=== PATIENT | female | born 1970 | race Caucasian/White ===

== ENCOUNTER → 2020-08-16 | Outpatient (CLI) | payer OTHER ==
[~2020-08-16] MED LIST: ACYC800 PO; BP MED; Bactrim Ds Tab1 EACH PO; CEPH500 PO; HEARTBURN MED
== END | disposition home or self-care (01) ==
LOC: PLD 07:24 → LAB SHORT 07:24
DX: D49.2 Neoplasm of unspecified behavior of bone, soft tissue, and skin (principal)
CPT/HCPCS: 88305

== ENCOUNTER → 2020-11-23 | Outpatient (CLI) | payer OTHER ==
[2020-11-27 11:59] LABS: Stool Occult Bld Immuno 1 Negative (NEGATIVE)
== END | disposition home or self-care (01) ==
LOC: LAB EV 11:00 → LAB SHORT 11:00
PROVIDERS: Nurse Practitioner Family
DX: K92.1 Melena (principal)
CPT/HCPCS: 82274

== ENCOUNTER 2020-12-02 06:27 | Emergency (ER) | payer OTHER ==
[~2020-12-02] VITALS: Ht 157.5 cm; Wt 68.0 kg
[~2020-12-02 06:27] MED LIST changes: -ACYC800 PO
[2020-12-02] MEDS ORDERED: ACYC800 PO (07:29)
== END 2020-12-02 07:58 | disposition home or self-care (01) ==
LOC: ER 06:27
DX: B02.9 Zoster without complications (principal); F17.210 Nicotine dependence, cigarettes, uncomplicated
CPT/HCPCS: 99282; A9270

== ENCOUNTER 2021-11-25 06:54 | Emergency (ER) | payer OTHER ==
[~2021-11-25] VITALS: Ht 157.5 cm; Wt 68.0 kg
[~2021-11-25 06:54] MED LIST changes: +ACYC800 PO
[2021-11-25 07:45] LABS: Hematocrit 45.1 % (33.0-51.0); Hemoglobin 14.9 g/dL (11.5-16.0); Mean Corpuscular HGB 30.7 pg (26.0-34.0); Mean Corpuscular Volume 93 fL (80-100); Mean Platelet Volume 10.8 fL (9.1-12.4); Platelet Count 206 K/mm3 (150-400); RDW Coefficient Variation 14.1 % (11.7-14.2); RDW Standard Deviation 47.8 fL (35.1-46.3); Red Blood Cell Count 4.85 M/mm3 (3.80-5.20); White Blood Cell Count 10.54 K/mm3 (4.00-11.30)
[2021-11-25 07:57] LABS: Albumin, Blood 3.8 g/dL (3.4-5.0); Bilirubin, Total 0.9 mg/dL (0.1-1.0); Bun/Creatinine Ratio 28.7 (12.0-20.0); Calcium, Blood 9.2 mg/dL (8.5-10.1); Creatinine, Blood 0.63 mg/dL (0.40-1.00); Potassium, Blood 3.6 mmol/L (3.5-5.5); Total Protein, Blood 7.8 g/dL (6.4-8.2)
[2021-11-25] MEDS ORDERED: LISI20 PO (08:13)
[2021-11-25] MEDS ORDERED: OMEP20ER PO (08:13)
[2021-11-25 08:25] LABS: BASOPHILS ABSOLUTE MAN 0.31 K/mm3 (0.00-0.23); BASOPHILS PERCENT MAN 3 % (0-2); EOSINOPHILS ABSOLUTE MAN 0.31 K/mm3 (0.00-0.68); EOSINOPHILS PERCENT MAN 3 % (0-6); LYMPHOCYTES PERCENT MAN 75 % (21-46); MONOCYTES ABSOLUTE MAN 0.31 K/mm3 (0.16-1.47); MONOCYTES PERCENT MAN 3 % (4-13); NEUTROPHILS ABSOLUTE MAN 1.68 K/mm3 (1.96-9.15); SEG NEUTROPHILS PERCENT MAN 16 % (41-73); TOTAL CELLS COUNTED 100
[2021-11-25 09:37] LABS: Influenza A, PCR NEGATIVE (NEGATIVE); Influenza B, PCR NEGATIVE (NEGATIVE); Resp Syncytial Virus, PCR NEGATIVE (NEGATIVE); SARS-Cov-2 (COVID-19) PCR, MMC NEGATIVE (NEGATIVE)
[2021-11-25] MEDS ORDERED: ALMACONE SUSPE355 ML PO (11:24)
[2021-11-25] MEDS ORDERED: ONDA4ODT MM (11:24)
== END 2021-11-25 11:37 | disposition home or self-care (01) ==
LOC: ER 06:54
PROVIDERS: Student in an Organized Health Care Education/Training Program
DX: R07.89 Other chest pain (principal); K21.9 Gastro-esophageal reflux disease without esophagitis; F41.9 Anxiety disorder, unspecified; F19.10 Other psychoactive substance abuse, uncomplicated; I10 Essential (primary) hypertension; R00.0 Tachycardia, unspecified; Z79.899 Other long term (current) drug therapy; F17.210 Nicotine dependence, cigarettes, uncomplicated; Z20.822 Contact with and (suspected) exposure to COVID-19
CPT/HCPCS: 0241U; 36415; 71045; 80053; 83735; 84484; 85025; 93005; 93010; 96374; 96375; 99284-25; A9270; G0480; J1885; J2060

== ENCOUNTER → 2022-05-22 | Outpatient (CLI) | payer OTHER ==
[~2022-05-22] MED LIST changes: +ALMACONE SUSPE355 ML PO; +LISI20 PO; +OMEP20ER PO; +ONDA4ODT MM
[2022-05-29 08:09] LABS: FENTANYL Positive (.); FENTANYL CONFIRM >50000 pg/mL (Cutoff=500); FENTANYL/NORFENTANYL Positive (.); NORFENTANYL Positive (.); NORFENTANYL CONFIRM >90000 pg/mL (Cutoff=500)
== END ==
LOC: LAB SHORT 12:30 → LAB 12:30
PROVIDERS: Family Medicine
DX: F15.10 Other stimulant abuse, uncomplicated (principal); F11.20 Opioid dependence, uncomplicated
CPT/HCPCS: G0480

== ENCOUNTER 2023-07-08 18:35 | Emergency (ER) | payer OTHER ==
[~2023-07-08] VITALS: Ht 154.9 cm; Wt 61.2 kg
[~2023-07-08 18:35] MED LIST changes: +SULTRIDS PO
[2023-07-08 21:03] VITALS: BP 212/131
[2023-07-08 22:34] LABS: Source, Urine Clean Catch
[2023-07-08 22:36] LABS: Appearance, Urine Clear (Clear); Bilirubin, Urine Neg (Neg); Blood, Urine 1+ (Neg); Color, Urine Yellow (P-Yellow); Glucose Qualitative, Urine Neg (Neg); Ketones, Urine Neg (Neg); Leukocyte Esterase, Urine Neg (Neg); Nitrite, Urine Neg (Neg); Protein, Urine Neg (Neg); Specific Gravity, Urine 1.015 (1.003-1.022); Urobilinogen, Urine NORM (Normal)
[2023-07-08 22:57] LABS: Bacteria Few /hpf; Red Blood Cells, Urine 0-2 /hpf (0-2); Squamous Epithelial Cells Few /hpf (Few); White Blood Cells, Urine 0-2 /hpf (0-5)
== END 2023-07-08 22:25 | disposition left against medical advice (07) ==
LOC: ER 18:35
PROVIDERS: Student in an Organized Health Care Education/Training Program
DX: R10.30 Lower abdominal pain, unspecified (principal); Z53.29 Procedure and treatment not carried out because of patient's decision for other reasons; Z87.442 Personal history of urinary calculi
CPT/HCPCS: 81001

== ENCOUNTER 2023-08-10 11:32 | Day surgery (SDC) | payer OTHER ==
[~2023-08-10] VITALS: Ht 154.9 cm; Wt 62.6 kg
[2023-08-10] VITALS (8 sets, daily range): BP systolic 113–159; BP diastolic 82–108
[~2023-08-10 11:32] MED LIST changes: +BUPRENORPHINE-1 EACH SL; +FISH OIL 1,0001 EA10 PO; +Milk Thistle175 M1 PO
[2023-08-10] MEDS ORDERED: Lidocaine 2% Jelly Uro-Jet ONE (11:41)
[2023-08-10] MEDS ORDERED: Phenylephrine 0.5% Nasal Spray/Drops 15 ML ONE (11:42)
[2023-08-10] MEDS ORDERED: Lidocaine 2% 5 ML SDV ONE (11:42)
[2023-08-10] MEDS ORDERED: EpiNEPhrine 1 MG/1 ML 1ML Vial ONE (11:57)
--- NOTE | 2023-08-10 12:27 | NUR ---
Ambulatory in Day Surgery History, Chart, Medications and Allergies reviewed before start of procedure. Pre-Op teaching done. Pt verbalizes understanding. Patient States Post-Procedure ride home has been arranged.
[2023-08-10] MEDS ORDERED: Midazolam HCL 1 MG/ML 5MLVIAL ONE ×3 (12:29→13:47)
[2023-08-10] MEDS ORDERED: propofoL 20 ML IV ONE (12:29)
[2023-08-10] MEDS ORDERED: Lactated Ringer's 1,000 ML IV SCH (12:30)
[2023-08-10] MEDS ORDERED: FentaNYL Citrate 50 MCG/ML 2 ML Injection ONE ×2 (12:30→13:40)
[2023-08-10] MEDS ORDERED: propofoL 0 ML IV ONE (12:52)
--- NOTE | 2023-08-10 13:59 | NUR ---
08/10/23 1359 Andrei Chavez History, Chart, Medications and Allergies reviewed before start of procedure. MONITOR INTACT WITH CONTINUOUS PULSE OXIMETRY, CONTINUOUS END TITAL CO2, AND INTERMITTENT BLOOD PRESSURE. 3-LEAD EKG REVIEWED WITH PHYSICIAN PRIOR TO START OF PROCEDURE. O2 VIA POM MASK INTACT THROUGHOUT SEDATION/PROCEDURE. Bite Block Placed. LIDO TO BACK OF THROAT PRIOR TO PROCEDURE. GLASSES REMOVED FROM PATIENT AND PLACED IN DAY SURGERY BAY.
--- NOTE | 2023-08-10 16:31 | NUR ---
Discharge instructions reviewed with patient. Patient verbalizes understanding. Copy given to patient to take home. Patient States Post-Procedure ride home has been arranged. Discharged via wheelchair to private car for ride home.
== END 2023-08-10 16:25 | disposition home or self-care (01) ==
LOC: ORSCMMR 11:32 → ORD 13:00 → ORSCMMR 16:25
PROVIDERS: Student in an Organized Health Care Education/Training Program
PROC: 0BDB8ZX Extraction of Left Lower Lobe Bronchus, Via Natural or Artificial Opening Endoscopic, Diagnostic (ICD-10-PCS; principal; 2023-08-10 13:00)
PROC: 0BD58ZX Extraction of Right Middle Lobe Bronchus, Via Natural or Artificial Opening Endoscopic, Diagnostic (ICD-10-PCS; principal; 2023-08-10 13:00)
PROC: 0BD88ZX Extraction of Left Upper Lobe Bronchus, Via Natural or Artificial Opening Endoscopic, Diagnostic (ICD-10-PCS; principal; 2023-08-10 13:00)
PROC: 0BD78ZX Extraction of Left Main Bronchus, Via Natural or Artificial Opening Endoscopic, Diagnostic (ICD-10-PCS; principal; 2023-08-10 13:00)
PROC: 0BD38ZX Extraction of Right Main Bronchus, Via Natural or Artificial Opening Endoscopic, Diagnostic (ICD-10-PCS; principal; 2023-08-10 13:00)
PROC: 0B9M8ZX Drainage of Bilateral Lungs, Via Natural or Artificial Opening Endoscopic, Diagnostic (ICD-10-PCS; principal; 2023-08-10 13:00)
PROC: 0BD48ZX Extraction of Right Upper Lobe Bronchus, Via Natural or Artificial Opening Endoscopic, Diagnostic (ICD-10-PCS; principal; 2023-08-10 13:00)
PROC: 0BD98ZX Extraction of Lingula Bronchus, Via Natural or Artificial Opening Endoscopic, Diagnostic (ICD-10-PCS; principal; 2023-08-10 13:00)
PROC: 0BD68ZX Extraction of Right Lower Lobe Bronchus, Via Natural or Artificial Opening Endoscopic, Diagnostic (ICD-10-PCS; principal; 2023-08-10 13:00)
DX: R91.1 Solitary pulmonary nodule (principal); F43.10 Post-traumatic stress disorder, unspecified; J44.9 Chronic obstructive pulmonary disease, unspecified; F17.210 Nicotine dependence, cigarettes, uncomplicated; Z79.899 Other long term (current) drug therapy
CPT/HCPCS: 71045; 87070; 87075; 87102; 87116; 87205; 87252; 88104; 88108; 88305; A9270; J0171; J2250; J2704; J3010; J7120

== ENCOUNTER → 2024-02-03 | Outpatient (CLI) | payer OTHER | END | disposition home or self-care (01) | LOC: LAB 18:34 → LAB SHORT 18:34 | DX: N39.0 Urinary tract infection, site not specified (principal) | CPT/HCPCS: 87077; 87086; 87186 ==

== ENCOUNTER → 2024-02-10 | Outpatient (CLI) | payer OTHER ==
[2024-02-10 15:48] LABS: Hematocrit 46.2 % (33.0-51.0); Hemoglobin 15.5 g/dL (11.5-16.0); Mean Corpuscular HGB 30.5 pg (26.0-34.0); Mean Corpuscular HGB Conc 33.5 g/dL (31.5-36.5); Mean Corpuscular Volume 91 fL (80-100); Mean Platelet Volume 11.4 fL (9.1-12.4); Platelet Count 314 K/mm3 (150-400); RDW Coefficient Variation 13.2 % (11.7-14.2); RDW Standard Deviation 44.7 fL (35.1-46.3); Red Blood Cell Count 5.08 M/mm3 (3.80-5.20)
[2024-02-10 15:49] LABS: Albumin, Blood 4.6 g/dL (3.4-5.0); Bilirubin, Total 0.7 mg/dL (0.1-1.0); Calcium, Blood 10.1 mg/dL (8.5-10.1); Creatinine, Blood 1.19 mg/dL (0.40-1.00); Globulin, Blood 4.5 g/dL (2.2-4.0); Potassium, Blood 4.5 mmol/L (3.5-5.5); Total Protein, Blood 9.1 g/dL (6.4-8.2)
[2024-02-10 15:50] LABS: EOSINOPHILS PERCENT AUTO 2 % (0-6); LYMPHOCYTES PERCENT AUTO 47 % (21-46); MONOCYTES PERCENT AUTO 6 % (4-13); NEUTROPHILS PERCENT AUTO 45 % (41-73)
[2024-02-10 15:51] LABS: LYMPHOCYTES ABSOLUTE MAN 5.64 K/mm3 (0.84-5.20); LYMPHOCYTES PERCENT MAN 47 % (21-46); SEG NEUTROPHILS PERCENT MAN 45 % (41-73)
[2024-02-10 15:52] LABS: EOSINOPHILS ABSOLUTE MAN 0.24 K/mm3 (0.00-0.68); EOSINOPHILS PERCENT MAN 2 % (0-6); MONOCYTES ABSOLUTE MAN 0.72 K/mm3 (0.16-1.47); MONOCYTES PERCENT MAN 6 % (4-13)
== END | disposition home or self-care (01) ==
LOC: LAB SHORT 15:35 → LAB 15:35
PROVIDERS: Family Medicine
DX: K92.0 Hematemesis (principal); R10.30 Lower abdominal pain, unspecified; R10.13 Epigastric pain
CPT/HCPCS: 80053; 83690; 85025